=== PATIENT | female | born 1960 | race Caucasian/White ===

== ENCOUNTER → 2017-06-12 | Day surgery (SDC) | payer OTHER ==
[~2017-06-12] VITALS: Ht 160 cm; Wt 46.0 kg
[~2017-06-12] MED LIST: ALBU18HF INH; CYCL5TAB PO; DIAZ5TAB PO; DIL4T PO; DIPH25CA6 PO; Lactated Ringer's 1,000 ML IV ONE; Lactated Ringer's 1,000 ML IV SCH; MetoCLOpramide 5 mg/mL 2 mL Inj IVPUSH PRN; OMEP20CA11 PO; OXYC-474 PO; OXYC30TA77 PO; Ondansetron 2 mg/mL 2 mL Inj IVPUSH PRN; RANI150T11 PO; SUCR1TAB PO; SYMINH INHALATION; ZOF8 PO
[2017-06-12 14:54] VITALS: BP 145/80; PULSE 90; RESP 14; O2SAT 98
[2017-06-12 15:49] VITALS: BP 115/69; PULSE 83; RESP 16; O2SAT 100
[2017-06-12 15:59] VITALS: BP 121/75; PULSE 76; RESP 16; O2SAT 100
[2017-06-12 16:09] VITALS: BP 115/78; PULSE 82; RESP 14; O2SAT 99
[2017-06-12 16:14] VITALS: BP 106/86; PULSE 81; RESP 14; O2SAT 100
--- NOTE | 2017-06-12 16:15 | PCM.HPANE ---
Patient Data Surgeon Admitting Provider: Attending Provider:Antoine Schmitz MD Primary Care Physician:Khai Michelle DO Other Provider:Delma Grant Anesthesia Reason for Visit Chronic Superficial Gastritis Ht/WT & BMI Height (Feet): 5 Height (Inches): 3 Weight (Kilograms): 46 Body Mass Index 17.00 Allergies Coded Allergies: Sulfa (Sulfonamide Antibiotics) (Verified Allergy, Severe, RASH, 06/12/17) FROM UNCODED ALLERGY NSAIDS (Non-Steroidal Anti-Inflamma (Verified Allergy, Intermediate, STOMACH PAIN, 05/11/16) Past Anesthesia History Anesthesia History: Positive for:: Anesthesia Reactions ("REALLY SICK"), Denies:: Abnormal Airway, Difficult Intubation, Fam Anesthesia Reaction, Fam Malignant Hypertherm, Malignant Hyperthermia Diabetes History Hx Diabetes?: No MRSA MRSA: No Medications Reported Medications Sucralfate 1 Gm Tablet1 Gm PO QID 30 Days Ref 0 06/11/17 Oxycodone (Roxicodone)5 Mg Xsxevb46 Mg PO TID PRN For Pain Ref 0 06/11/17 Omeprazole 20 Mg Capsule.dr20 Mg PO BID Ref 0 06/11/17 Cyclobenzaprine 5 Mg Tablet5 Mg PO DAILY PRN Spasm 06/11/17 Albuterol Sulfate (Ventolin HFA Inhaler)200 Puff/18 Gm Inhaler1 Puff INH Q4 PRN For Wheezing #1 INHALER Ref 0 05/10/16 Diazepam (Valium)5 Mg Tablet2 Mg PO BID A 30 Days Ref 0 05/10/16 Budesonide/Formoterol 160-4.5 mcg Inh (Symbicort 160-4.5 mcg Inh)120 Puff Inhaler1 Puff INHALATION BID #1 INHALER Ref 0 05/10/16 Oxycodone ER (Oxycontin)30 Mg Tab.er.12h10 Mg PO DAILY crush q12 hours 05/10/16 Ondansetron (Zofran)8 Mg Tablet4 Mg PO Q4H PRN For Nausea 05/10/16 diphenhydrAMINE HCl (Benadryl)25 Mg Aoeaqer26 Mg PO HS PRN Ref 0 05/10/16 Discontinued Reported Medications Ranitidine (Zantac)150 Mg Iedzrp600 Mg PO DAILY 05/10/16 Hydromorphone (Dilaudid)4 Mg Tablet4 Mg PO Q4H PRN Pain Ref 0 05/10/16 Budesonide/Formoterol 160-4.5 mcg Inh (Symbicort 160-4.5 mcg Inh)120 Puff Inhaler1 Puff INHALATION BID #1 INHALER Ref 0 05/10/16 History History of ENT Problems?: No HEENT History: Positive for:: Dysphagia (UPPER DYSPHAGIA/PAIN) Denies:: Abnormal Airway Difficult Intubation Hearing Problem Denture Type: Full- Upper Full- Lower Teeth Condition: Missing Teeth Hx of Heart Problems?: No Cardiovascular History: Denies:: AICD Abdominal Aortic Aneurism Atrial Fibrillation Cardiac Surgery Chest Pain Congestive Heart Failure Coronary Artery Disease Edema Heart Murmur Hypertension Irregular Heartbeat Pacemaker Peripheral Vascular Rheumatic Fever Thrombophlebitis Valvular Heart Disease Hx of Respiratory Problem?: Yes Respiratory History: Positive for:: Asthma COPD Denies:: Chest Surgery Cough Dyspnea Emphysema Hemoptysis (ONLY WHEN I HAVE BRONCHITIS, JUST GOT OVER IT A COUPLE MONTHS AGO ) Oxygen Administration Pneumonia Pulmonary Embolism Tuberculosis Use of C-PAP Machine Use of Inhalers / NEBS Hx Neurologic Problems?: No Neurological History: Denies:: Alzheimer's Disease CVA Dementia Dizziness Headaches Multiple Sclerosis Parkinson's Disease Peripheral Neuropathy Seizures TIA Hx of GI Problems?: Yes Gastrointestinal History: Positive for:: Gastroesphageal Reflux Denies:: Cirrhosis Diverticulitis Gall Bladder Disease Gastrointestinal Bleeding Heartburn Hepatitis Hiatal Hernia Liver Disease Rectal Bleeding Hx of Problems?: No Genitourinary History: Denies:: HX of Hemodialysis Kidney Stones Urinary Tract Infection HX of Peritoneal Dialysis: No Female Hx: Denies:: Currently Endometriosis Pelvic Inflammatory Problems with Breasts? Skin History: Denies:: History Skin Disorders? Pressure Ulcers Hx Musculoskeletal Problems?: No Musculoskeletal History: Positive for:: Back Injury Denies:: Degenerative Joint Fibromyalgia Joint Replacement Musculoskeletal Trauma Myasthenia Gravis Osteoarthritis Rheumatoid Arthritis Systemic Lupus Hx of Psycho/Social Problems?: Yes Psycho Social History: Positive for:: Anxiety Denies:: Bipolar Disorder Hx Depression Suicide Attempt Hx Surgeries?: Yes (HYST, CHOLY, THORACIC OUTLET, FX L WRIST, CAVERNOUS ANGENOMA, ) Hx Any Other Health Problems?: No Other History: Positive for:: Hospitalization (back problems) Denies:: Cancer Endocrine Disease Thyroid Disease History Blood Transfusions: Positive for:: Accept Blood Products? Denies:: Blood Transfuse Reaction Blood Transfusions Hx Diabetes: No Hx Alcohol Use: NoHx Substance Use: Yes ("smack, LSD", in her younger years) Smoking Status: Current Every Day Smoker Stop/Bang Treated for Sleep Apnea?: No S-Snoring: Do You Snore Loudly: No T-Tired: feel tired, fatigued: Yes O-Obsered: Observed not breath: No P-Blood Pressure: treated: No B- Body Mass Index > 35 kg/m2: No A- Age over 50: Yes N- Neck Large Circumference: No G- Gender Male: No TATYANA Total Score: 2 Risk Assessment Category Category 1A: Patient has history of documented sleep apnea, and HAS NOT received any narcotic, sedative or anesthesia administration during this stay. Category 1B: Patient has history of documented sleep apnea, and HAS received any narcotic , sedative or anesthesia administration during this stay Category 2: Patient has SUSPECTED Obstructive Sleep Apnea, and HAS received any narcotic , sedative or anesthesia administration during this stay. Category 3: Patient has SUSPECTED Obstructive Sleep Apnea and HAS NOT received narcotic, sedative or anesthesia administration during this stay. Category 4: Outpatient in Procedural Areas with known sleep apnea or who screen positive for High Risk via the STOP/BANG questionnaire. Exam Exam Vital Signs Vital Signs Date Time Temp Pulse Resp B/P Pulse Ox O2 Delivery O2 Flow Rate FiO2 06/12/17 14:54 36.8 90 14 145/80 98 Room Air General Appearance: Alert, Oriented X3, Cooperative, No Acute Distress HEENT/AIRWAY: MP 2 Lungs: Clear to Auscultation, Normal Air Movement Heart: Exam Unremarkable, Regular Rate/Rhythm, No Murmurs/Rubs/Gallops Plan Impression Patient chart reviewed, patient interviewed and anesthestic plan with risks, benefits, and alternatives discussed, and informed consent obtained. NPO per Anesth. Guidelines: Yes ASA Physical Status: ASA2 Mod Systemic Disease Anesthetic Plan: MAC Bene/Risks/Altern/Consents: Yes HP Complete Prior to Induction: Yes Jayro Ayers MD Jun 12, 2017 15:15
--- NOTE | 2017-06-12 16:16 | PCM.ANEP1 ---
Post Anesthesia PACU Phase 1 Assessment Vital Signs Vital Signs Date Time Temp Pulse Resp B/P Pulse Ox O2 Delivery O2 Flow Rate FiO2 06/12/17 16:09 82 14 115/78 99 Room Air 06/12/17 15:59 76 16 121/75 100 Room Air 06/12/17 15:49 83 16 115/69 100 Room Air 06/12/17 14:54 36.8 90 14 145/80 98 Room Air Anesthetic Administered: GA Level of Alertness: Awake, talking MCDONOUGH's with Equal Strength: Yes Pain: No Nausea or Vomiting: No CV Function & Hydration Stable: No Airway Device: Lungs: Clear to Auscultation, Normal Air Movement Dermatome Level: Full Sensation PACU Phase 2 Assessment Complications: No Follow up Care: N/A Patient Instructions Provided: N/A Jayro Ayers MD Jun 12, 2017 16:16
--- NOTE | 2017-06-12 16:17 | ENDO ---
[address] [address] ENDOSCOPY PROCEDURE PATIENT: MACIE URIBE : 1960 MR#: [id number] ADMIT: 06/12/2017 JOB ID: [id number] DATE: 06/12/2017 TYPE OF OPERATION: 1. Esophagogastroduodenoscopy with biopsy. 2. Colonoscopy with hot snare polypectomy. PREOPERATIVE DIAGNOSES: 1. Abdominal pain. 2. Rectal bleeding. POSTOPERATIVE DIAGNOSIS(ES): 1. Moderate nonerosive gastritis status post biopsy. 2. Pylorus status post biopsy. 3. A 2 cm sigmoid polyp, removed by hot snare polypectomy and a hemoclip was placed at the post polypectomy site. ANESTHESIA: Monitored anesthesia care. COMPLICATION: None. BLOOD LOSS: Minimal. DESCRIPTION OF PROCEDURE: After risks and benefits were explained to the patient, informed consent was obtained. After anesthesia administered, upper endoscope was then inserted into the mouth intubating to the esophagus, stomach, second portion of duodenum. Mucosa carefully examined. After the procedure was done, the scope withdrawn and procedure terminated. Colonoscope was then inserted from the rectum to the cecum. Mucosa carefully examined. Prep of the patient was excellent. After the procedure was done, the scope withdrawn and procedure terminated. FINDINGS: Upon inspection of the esophagus, esophagus was normal without masses, ulcers or lesions. Z-line located at 40 cm from incisors. Upon entering stomach, there was a moderate amount of nonerosive gastritis that was seen. No masses, ulcers, or lesions were seen. Retroflexion was normal. The pylorus appeared to be pretty tight at that region, but the scope was able to pass through. The duodenal bulb, first and second portion were normal. Biopsies taken at duodenum, pylorus, antrum, body of the stomach. Upon inspection of the anus, no masses, hemorrhoids, ulcers, fissures that were seen. Throughout the entire examination, there was a 2 cm sigmoid polyp, removed by hot snare polypectomy with a hemoclip that was placed at the post polypectomy site prior to the polypectomy. No other masses or lesions were seen. Retroflexion was normal. IMPRESSIONS: 1. A 2 cm sigmoid colon polyp removed by hot snare polypectomy and a hemoclip placed post polypectomy site. 2. Moderate nonerosive gastritis. 3. Tight pylorus. RECOMMENDATION: 1. Await pathology results. 2. Repeat colonoscopy in three years. 3. Followup in GI clinic as needed with the referring provider.
--- NOTE | 2017-06-15 14:31 | PATH ---
SURGICAL PATHOLOGY Attending Physician:Antoine Schmitz MD CASE STATUS: Signed Out PATIENT NAME: MACIE URIBE PID: [id number] : 1960 DATE COLLECTED:06/12/2017 00:00 SPECIMEN: 1: Duodenum, Biopsy 2: Stomach, Antrum, Biopsy 3: Gastric, Biopsy 4: Gastric, Biopsy 5: Colon, Polyp CLINICAL HISTORY: 1). DUODENAL BIOPSY 2). ANTRUM BIOPSY 3). GASTRIC BODY BIOPSY 4). PYLORUS BIOPSY 5). SIGMOID POLYP X1 FINAL DIAGNOSIS: 1. Duodenal Biopsy: Duodenal mucosa with no diagnostic abnormality. Negative for active inflammation, features of sprue, dysplasia or malignancy. 2. Antrum, Biopsy: Gastric antral-type mucosa with no diagnostic abnormality. Negative for Helicobacter pylori microorganisms. Negative for intestinal metaplasia. Negative for dysplasia or malignancy. 3. Gastric Body, Biopsy: Gastric body-type mucosa with no diagnostic abnormality. Negative for Helicobacter pylori microorganisms. Negative for intestinal metaplasia. Negative for dysplasia or malignancy. 4. Pylorus Biopsy: Gastric antral-type mucosa with mild focal chronic gastritis and a single gland with neutrophilic inflammation. Negative for intestinal metaplasia (by Alcian blue stain) Negative for Helicobacter pylori microorganisms by immunohistochemical stain. Negative for dysplasia or malignancy. 5. Sigmoid Polyp x1, Biopsy: Tubulovillous adenoma. Negative for high grade dysplasia and malignancy. ICD10: D12.6 GROSS DESCRIPTION: The specimen is received in five formalin filled containers labeled with the patient's name. 1). No specimen is labeled "duodenal" and consists of 2 portions of tissue which aggregate to 0.2 x 0.2 x 0.1 CM. The specimen is entirely submitted in cassette 1A. 2). The specimen is labeled "antrum" and consists of a 0.5 x 0.2 x 0.2 CM portion of tissue which is entirely submitted in cassette 2A. 3). The specimen is labeled "gastric body" and consists of 2 portions of tissue which aggregate to 0.3 x 0.2 x 0.2 seen. The specimen is entirely submitted in cassette 3A. 4). The specimen is labeled "pylorus" and consists of a 0.3 x 0.2 x 0.2 CM portion of tissue which is entirely submitted in cassette 4A. 5). The specimen is labeled "sigmoid polyp" and consists of a 0.6 x 0.6 x 0.6 CM portion of tissue. The specimen is bisected and totally submitted in cassette 5A. 06/13/2017[place] MICRO DESCRIPTION: 4) An immunohistochemical stain was performed to evaluate for Helicobacter pylori microorganisms. A control stain showed appropriate reactivity. 4) An Alcian blue stain was performed to evaluate for intestinal metaplasia. The control stain shows appropriate reactivity. * This test was developed and its performance characteristics determined by [facility]. It has not been cleared or approved by the U.S. Food and Drug Administration. The FDA has determined that such clearance or approval is not necessary. This test is used for clinical purposes. It should not be regarded as investigational or for research. ICD-9 CODES: CPT CODES: 1: 49586 2: 81114 3: 74362 4: 72825, 55318, 68052 5: 51181 Electronically Signed Out Blanco Leon MD [facility] [address], [place] [address] Technical component performed at [facility], [address], [place], [address]
== END | disposition home or self-care (01) ==
LOC: END 00:30
PROVIDERS: ATTEND Internal Medicine Gastroenterology
DX: K62.5 Hemorrhage of anus and rectum (principal); D12.5 Benign neoplasm of sigmoid colon; K29.50 Unspecified chronic gastritis without bleeding; K76.0 Fatty (change of) liver, not elsewhere classified; F11.29 Opioid dependence with unspecified opioid-induced disorder
CPT/HCPCS: 43239; 45385; 88305; 88313; 88342; J7120

== ENCOUNTER 2017-07-10 13:21 | Emergency (ER) | payer OTHER ==
[~2017-07-10] VITALS: Ht 157.5 cm; Wt 45.5 kg
[~2017-07-10 13:21] MED LIST changes: -DIL4T PO; -Lactated Ringer's 1,000 ML IV ONE; -Lactated Ringer's 1,000 ML IV SCH; -MetoCLOpramide 5 mg/mL 2 mL Inj IVPUSH PRN; -Ondansetron 2 mg/mL 2 mL Inj IVPUSH PRN; -RANI150T11 PO
[2017-07-10 13:23] VITALS: BP 136/88; PULSE 105; RESP 13; O2SAT 98
[2017-07-10] MEDS ORDERED: LidocaineVisc 2%:Antacid 1:1 10 mL Syringe PO ONE (13:35)
--- NOTE | 2017-07-10 13:36 | ED.REPORT ---
HPI-Chest Pain 40 and Over Date of Service Jul 10, 2017 ED Provider: Ja Ha MD The pt is a 56 y/o female w/ a hx of chronic superficial gastritis, anxiety, COPD, asthma, arthritis, a cholecystectomy and obstructive jaundice presenting to the ED complaining of upper abdominal pain. The pain does not feel similar to past episodes of acid reflux, has been intermittent fro the last 3 weeks but constant since last night, sharp, and radiates to her back and chest w/ a burning sensation. Her medications have not helped to decrease her symptoms. Other symptoms include dizziness, nausea, and lungs shuddering when she tries to take a breath. Denies vomiting or blood in stool. Nursing Notes Stated Complaint: SOB Chief Complaint: Abdominal pain Nursing Notes Reviewed: Yes Allergies: Coded Allergies: Sulfa (Sulfonamide Antibiotics) (Verified Allergy, Severe, RASH, 06/12/17) FROM UNCODED ALLERGY NSAIDS (Non-Steroidal Anti-Inflamma (Verified Allergy, Intermediate, STOMACH PAIN, 05/11/16) Scheduled Budesonide/Formoterol 160-4.5 mcg Inh (Symbicort 160-4.5 mcg Inh) 120 Puff Inhaler 1 PUFF INHALATION BID Diazepam (Valium) 5 Mg Tablet 2 MG PO BID Omeprazole (Omeprazole) 20 Mg Capsule.dr 20 MG PO BID Oxycodone ER (Oxycontin) 30 Mg Tab.er.12h 10 MG PO DAILY crush q12 hours Sucralfate (Sucralfate) 1 Gm Tablet 1 GM PO QID Scheduled PRN Albuterol Sulfate (Ventolin HFA Inhaler) 200 Puff/18 Gm Inhaler 1 PUFF INH Q4 PRN PRN For Wheezing Cyclobenzaprine (Cyclobenzaprine) 5 Mg Tablet 5 MG PO DAILY PRN PRN Spasm Ondansetron (Zofran) 8 Mg Tablet 4 MG PO Q4H PRN PRN For Nausea Oxycodone (Roxicodone) 5 Mg Tablet 10 MG PO TID PRN PRN For Pain diphenhydrAMINE HCl (Benadryl) 25 Mg Capsule 25 MG PO HS PRN PRN General Time Seen by MD: 13:36 Chief Complaint Other (Abdominal pain ) Hx Obtained From: Patient Arrived By: Walk-in Sudden in Onset?: Yes Onset Occurred: More than a week ago... (3 weeks) Symptom Duration: Since onset Recent Healthcare: No recent hospitalization, Recent doctor visit Similar Sx Previous: No Past Medical History Past Medical History Chronic superficial gastritis Obstructive jaundice Anxiety COPD Asthma Arthritis Past Surgical History Hysterectomy Cholecystectomy Thoracic outlet L wrist Smoking History Current Every Day Smoker Social History Other Social History: Good social support Ambulatory Status Independent Review of Systems Lung "shuddering"; Cardiovascular: Reports: Chest pain GI: Reports: Abdominal pain (Upper ), Nausea, Denies: Bloody/tarry stool, Hematemesis, Vomiting Neurologic: Reports: Dizziness Complete sys rev & neg: except as marked. Physical Exam Initial Vital Signs Vital Signs (First) Date Time Temp Pulse Resp B/P Pulse Ox O2 Delivery O2 Flow Rate FiO2 07/10/17 13:23 36.4 105 13 136/88 98 Room Air Initial VS: Reviewed Head / Eyes: Atraumatic, Normocephalic, PERRL ENT: Mucous membranes moist, Conjunctiva normal, No scleral icterus Neck: Supple, Non-tender, Full range of motion Extremities: Vascular intact, Neuro intact, No swelling, No tenderness Skin: Warm, Dry, No cyanosis Neurologic: Alert, Oriented, Nonfocal Psychiatric: Mood/affect normal, Behavior normal, Normal thought content General/Constitutional: Awake, Alert Respiratory / Chest: Atraumatic, Breath sounds NL, Breath sounds = bilat Cardiovascular: Heart rate NL, Regular rhythm, Heart sounds NL Abdomen: Soft Tenderness/Guarding/Rebound: Positive: Tender epigastric Interpretation & Diagnostics Lab Results Interpretation Result Diagram: 07/10/17 1340 07/10/17 1340 Test 07/10/17 13:40 White Blood Count 10.0th/mm3 (3.8-10.1) Red Blood Count 5.44mil/mm3 (3.90-5.20) Hemoglobin 15.9g/dL (12.0-15.6) Hematocrit 47.1% (35.0-46.0) Mean Corpuscular Volume 86.6fL (81-100) Mean Corpuscular Hemoglobin 29.2pg (27.0-35.0) Mean Corpuscular Hemoglobin Concent 33.8% (32.0-37.0) Red Cell Distribution Width 13.6% (12.3-15.4) Platelet Count 406bil/L (150-400) Neutrophils (%) (Auto) 70.5% (40-74) Lymphocytes (%) (Auto) 20.8% (14-46) Monocytes (%) (Auto) 7.0% (4-12) Eosinophils (%) (Auto) 0.6% (0-5) Basophils (%) (Auto) 0.9% (0-3) D-Dimer < 0.50mg/L FEU (<0.50) Sodium Level 139mEq/L (134-144) Potassium Level 3.9mEq/L (3.5-5.2) Chloride Level 98mEq/L (97-108) Carbon Dioxide Level 22mmol/L (18-29) Blood Urea Nitrogen 9mg/dL (6-24) Creatinine 0.70mg/dL (0.57-1.00) Estimat Glomerular Filtration Rate 123mL/min (>59) Glucose Level 91mg/dL (60-99) Calcium Level 9.9mg/dL (8.5-10.1) Magnesium Level 2.0mg/dL (1.6-2.6) Total Bilirubin 0.3mg/dL (0.0-1.2) Aspartate Amino Transf (AST/SGOT) 20U/L (0-50) Alanine Aminotransferase (ALT/SGPT) 12U/L (0-32) Alkaline Phosphatase 75U/L (25-150) Troponin T < 0.010ug/L (0.0-0.011) Total Protein 7.4g/dL (6.4-8.4) Albumin 4.5g/dL (3.4-5.0) Lipase 16U/L (13-60) Hold Marshall Top Tube Received (Received) ECG Interpretation ECG Interpretation: NSR Rate 94 T wave flattening in v1-v4 No previous ECG for comparison Time: 13:30 Interpreted by: ED physician X-Ray Chest Interpretation Chest Xray Interpretation: IMPRESSION: Source of chest pain is not seen. Old left lateral rib fractures. Dictated by: Ras Dooley M.D. on 07/10/2017 at 13:58 Approved by: Ras Dooley M.D. on 07/10/2017 at 13:59 View: Portable, 1 view Interpretation / Wet Read by: Interpret - Radiologist Re-Eval/Medical Decision Med Decision/Clinical Course 56-year-old female with chronic gastritis presenting with epigastric pain intermittent 3 weeks. She did have an EGD with biopsy 3 weeks ago. She reports this feels similar to her chronic gastritis. Pain improved with GI cocktail. Her abdomen is soft with minimal epigastric tenderness. Given the chronicity, no peritoneal signs, chest x-ray is clear with no pneumoperitoneum do not suspect perforated viscus from the EGD though patient declined CT scan. Her labs are unremarkable. Patient did have mild tenderness at time of discharge though she requested to go home without any further testing or medications or interventions. She will return immediately if she has any worsening pain. Source of Hx: Old records Time of Eval: 14:31 Re-Evaluation/Progress Note: Pt rechecked. Informed pt of plan for treatment. Pt understands and agrees with plan for treatment. F/U instructions and RTER warnings given. All questions addressed. Counseled Regarding: Diagnosis, Lab results, Need for follow-up, When/why to return to ED Discharge & Departure Primary Impression: Abdominal pain Abdominal location: epigastric Qualified Code: R10.13 - Epigastric pain Disposition: Home Discharge Condition All VS Reviewed: Yes Condition: Stable Additional Instructions: Thank for you entrusting us with your care today. Your labs were reassuring. You have declined any further pain medications and requested to go home and it is still unclear what is causing your symptoms. Follow up with your primary care provider tomorrow and please return to the emergency department if you experience any increasing abdominal pain, nausea, vomiting, blood in your stool, fevers, chest pain, shortness of breath, or any new or worsening symptoms. I hope you feel better soon. Referrals: Khai Michelle DO (PCP) Scribe Attestation Portions of this note were transcribed by Fam Swan. I, Dr. Peres personally performed the history, physical exam and medical decision-making; I reviewed and confirmed the accuracy of the information in the transcribed note. copies to: Khai Michelle Ben M MD Jul 10, 2017 13:36 Fam Swan Jul 10, 2017 13:56
[2017-07-10 13:50] LABS: BASOPHILS % (AUTO) 0.9 % (0-3); EOSINOPHILS % (AUTO) 0.6 % (0-5); Mean Corpuscular Hemoglobin 29.2 pg (27.0-35.0); Mean Corpuscular Volume 86.6 fL (81-100); NEUTROPHILS % (AUTO) 70.5 % (40-74); Platelet Count 406 bil/L (150-400)
[2017-07-10] MEDS ORDERED: Ondansetron 2 mg/mL 2 mL Inj IVPUSH PRN (13:50)
--- NOTE | 2017-07-10 14:00 | DRSVH ---
PROCEDURE: X-RAY CHEST ONE VIEW, PORTABLE ([id number]) INDICATIONS: CHEST PAIN TECHNIQUE: One view of the chest was acquired. COMPARISON: None. FINDINGS: Surgical changes and devices: None. Lungs and pleura: No pleural effusions or pneumothorax. Lungs are clear. Mediastinum: Mediastinal contours appear normal. Heart size is normal. Bones and chest wall: No suspicious bony lesions. Overlying soft tissues appear unremarkable. IMPRESSION: Source of chest pain is not seen. Old left lateral rib fractures. Dictated by: Ras Dooley M.D. on 07/10/2017 at 13:58 Approved by: Ras Dooley M.D. on 07/10/2017 at 13:59
[2017-07-10] MEDS ORDERED: Iohexol 300 mg/mL 30 mL Inj PO ONE (14:05)
[2017-07-10 14:17] LABS: TROPONIN T < 0.010 ug/L (0.0-0.011)
[2017-07-10 15:14] VITALS: BP 125/64; PULSE 89; RESP 17; O2SAT 98
== END 2017-07-10 15:23 | disposition home or self-care (01) ==
LOC: SED 13:21
DX: R10.13 Epigastric pain (principal); J44.9 Chronic obstructive pulmonary disease, unspecified; F41.9 Anxiety disorder, unspecified; F17.200 Nicotine dependence, unspecified, uncomplicated; Z88.2 Allergy status to sulfonamides; Z91.048 Other nonmedicinal substance allergy status
CPT/HCPCS: 36415; 71010; 80053; 83690; 83735; 84484; 85025; 85378; 93005; 96374; 96375; 99285; J2270; J2405

== ENCOUNTER → 2017-07-19 | Day surgery (SDC) | payer OTHER ==
[~2017-07-19] VITALS: Ht 157.5 cm; Wt 45.4 kg
[~2017-07-19] MED LIST changes: +Lactated Ringer's 1,000 ML IV ONE; +Propofol 10 mg/mL 20 mL Inj ONE
[2017-07-19 10:28] VITALS: BP 124/93; PULSE 101; O2SAT 99
--- NOTE | 2017-07-19 11:48 | PCM.HPANE ---
Patient Data Surgeon Admitting Provider: Attending Provider:Eleni Woodward MD Primary Care Physician:Khai Michelle DO Other Provider:Delma Grant Anesthesia Reason for Visit Abnormal Abdominal Ct Scan Ht/WT & BMI Height (Feet): 5 Height (Inches): 2 Weight (Kilograms): 45.36 Body Mass Index 18.00 Allergies Coded Allergies: Sulfa (Sulfonamide Antibiotics) (Verified Allergy, Severe, RASH, 06/12/17) FROM UNCODED ALLERGY NSAIDS (Non-Steroidal Anti-Inflamma (Verified Allergy, Intermediate, STOMACH PAIN, 05/11/16) acetaminophen (Verified Allergy, Unknown, 07/17/17) aspirin (Verified Allergy, Unknown, 07/17/17) naproxen (Verified Allergy, Unknown, 07/17/17) Past Anesthesia History Anesthesia History: Positive for:: Anesthesia Reactions ("REALLY SICK"), Denies:: Abnormal Airway, Difficult Intubation, Fam Anesthesia Reaction, Fam Malignant Hypertherm, Malignant Hyperthermia Diabetes History Hx Diabetes?: No MRSA MRSA: No Medications Home Meds Incl Beta Juan: No Reported Medications Sucralfate 1 Gm Tablet1 Gm PO QID 30 Days Ref 0 06/11/17 Oxycodone (Roxicodone)5 Mg [id number] Mg PO QID PRN For Pain Ref 0 06/11/17 Omeprazole 20 Mg Capsule.dr20 Mg PO BID Ref 0 06/11/17 Cyclobenzaprine 5 Mg Tablet5 Mg PO DAILY PRN Spasm 06/11/17 Albuterol Sulfate (Ventolin HFA Inhaler)200 Puff/18 Gm Inhaler1 Puff INH Q4 PRN For Wheezing #1 INHALER Ref 0 05/10/16 Budesonide/Formoterol 160-4.5 mcg Inh (Symbicort 160-4.5 mcg Inh)120 Puff Inhaler1 Puff INHALATION BID #1 INHALER Ref 0 05/10/16 Oxycodone ER (Oxycontin)30 Mg Tab.er.12h10 Mg PO BID crush q12 hours 05/10/16 Ondansetron (Zofran)8 Mg Tablet4 Mg PO Q4H PRN For Nausea 05/10/16 diphenhydrAMINE HCl (Benadryl)25 Mg Huyjtrg88-01 Mg PO HS PRN Ref 0 05/10/16 Discontinued Reported Medications Diazepam (Valium)5 Mg Tablet2 Mg PO BID A 30 Days Ref 0 05/10/16 History History of ENT Problems?: No HEENT History: Positive for:: Dysphagia (UPPER DYSPHAGIA/PAIN) Denies:: Abnormal Airway Difficult Intubation Hearing Problem Denture Type: Full- Upper Full- Lower Teeth Condition: Within Normal Limits Hx of Heart Problems?: No Cardiovascular History: Denies:: AICD Abdominal Aortic Aneurism Atrial Fibrillation Cardiac Surgery Chest Pain Congestive Heart Failure Edema Heart Murmur Hypertension Irregular Heartbeat Pacemaker Rheumatic Fever Thrombophlebitis Valvular Heart Disease Hx of Respiratory Problem?: Yes Respiratory History: Positive for:: Asthma 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) Denies:: Chest Surgery Cough Dyspnea Emphysema Hemoptysis (ONLY WHEN I HAVE BRONCHITIS, JUST GOT OVER IT A COUPLE MONTHS AGO ) Oxygen Administration Pneumonia Pulmonary Embolism Tuberculosis Use of C-PAP Machine Hx Neurologic Problems?: No Neurological History: Denies:: Alzheimer's Disease CVA Dementia Dizziness Headaches Multiple Sclerosis Parkinson's Disease Seizures Hx of GI Problems?: Yes Hx of Problems?: No Genitourinary History: Denies:: HX of Hemodialysis Kidney Stones Urinary Tract Infection HX of Peritoneal Dialysis: No Female Hx: Denies:: Currently Endometriosis Pelvic Inflammatory Problems with Breasts? Skin History: Denies:: History Skin Disorders? Pressure Ulcers Hx Musculoskeletal Problems?: No Musculoskeletal History: Positive for:: Back Injury Denies:: Degenerative Joint Fibromyalgia Joint Replacement Musculoskeletal Trauma Systemic Lupus Hx of Psycho/Social Problems?: Yes Psycho Social History: Positive for:: Anxiety Denies:: Bipolar Disorder Hx Depression Suicide Attempt Hx Surgeries?: Yes (HYST, CHOLY, THORACIC OUTLET, FX L WRIST, CAVERNOUS ANGENOMA, ) Hx Any Other Health Problems?: No Other History: Positive for:: Hospitalization (back problems) Denies:: Cancer Endocrine Disease Thyroid Disease History Blood Transfusions: Denies:: Blood Transfuse Reaction Blood Transfusions Hx Diabetes: No Hx Alcohol Use: NoHx Substance Use: Yes ("smack, LSD", in her younger years) Smoking Status: Current Every Day Smoker Have You Smoked inLast 12 mo: Yes Stop/Bang Treated for Sleep Apnea?: No Do You Have a CPAP Machine?: No S-Snoring: Do You Snore Loudly: No T-Tired: feel tired, fatigued: No O-Obsered: Observed not breath: No P-Blood Pressure: treated: No B- Body Mass Index > 35 kg/m2: No A- Age over 50: Yes N- Neck Large Circumference: No G- Gender Male: No TATYANA Total Score: 1 Risk Assessment Category Category 1A: Patient has history of documented sleep apnea, and HAS NOT received any narcotic, sedative or anesthesia administration during this stay. Category 1B: Patient has history of documented sleep apnea, and HAS received any narcotic , sedative or anesthesia administration during this stay Category 2: Patient has SUSPECTED Obstructive Sleep Apnea, and HAS received any narcotic , sedative or anesthesia administration during this stay. Category 3: Patient has SUSPECTED Obstructive Sleep Apnea and HAS NOT received narcotic, sedative or anesthesia administration during this stay. Category 4: Outpatient in Procedural Areas with known sleep apnea or who screen positive for High Risk via the STOP/BANG questionnaire. Exam Exam Vital Signs Vital Signs Date Time Temp Pulse Resp B/P Pulse Ox O2 Delivery O2 Flow Rate FiO2 07/19/17 10:28 101 124/93 99 Room Air General Appearance: Alert, Oriented X3, Cooperative, No Acute Distress HEENT/AIRWAY: MP 2 Lungs: Normal Air Movement Heart: Regular Rate/Rhythm Plan Impression Patient chart reviewed, patient interviewed and anesthestic plan with risks, benefits, and alternatives discussed, and informed consent obtained. NPO per Anesth. Guidelines: Yes ASA Physical Status: ASA2 Mod Systemic Disease Anesthetic Plan: MAC Bene/Risks/Altern/Consents: Yes HP Complete Prior to Induction: Yes Brian Christine MD Jul 19, 2017 11:48
[2017-07-19 12:11] VITALS: BP 137/71; PULSE 79; RESP 10; O2SAT 100
[2017-07-19 12:20] VITALS: BP 134/76; PULSE 75; RESP 12; O2SAT 100
[2017-07-19 12:28] VITALS: BP 134/76; PULSE 83; RESP 16; O2SAT 99
[2017-07-19 12:30] VITALS: BP 127/67; PULSE 77; RESP 14; O2SAT 100
--- NOTE | 2017-07-19 18:16 | PCM.ANEP1 ---
Post Anesthesia PACU Phase 1 Assessment Vital Signs Vital Signs Date Time Temp Pulse Resp B/P Pulse Ox O2 Delivery O2 Flow Rate FiO2 07/19/17 12:30 77 14 127/67 100 Room Air 07/19/17 12:28 83 16 134/76 99 Room Air 07/19/17 12:20 75 12 134/76 100 Room Air 07/19/17 12:11 35.9 79 10 137/71 100 Room Air 07/19/17 10:28 101 124/93 99 Room Air Anesthetic Administered: MAC Level of Alertness: Awake, talking Pain: No Nausea or Vomiting: No CV Function & Hydration Stable: Yes Airway Device: None Lungs: Normal Air Movement PACU Phase 2 Assessment Complications: No Follow up Care: N/A Patient Instructions Provided: N/A Brian Christine MD Jul 19, 2017 18:16
--- NOTE | 2017-07-26 00:38 | ENDO ---
[address] [address] ENDOSCOPY PROCEDURE PATIENT: MACIE URIBE : 1960 MR#: [id number] ADMIT: 07/19/2017 JOB ID: [id number] DATE OF PROCEDURE: 07/19/2017 PROCEDURE: Endoscopic ultrasound, esophagogastroduodenoscopy. INDICATION: Epigastric pain with cross-sectional imaging demonstrating a dilated pancreatic duct and bile duct. ANESTHESIA: Please see anesthesia report for details regarding ASA classification, Mallampati score, and medications. INSTRUMENTS USED: [id number] standard EGD scope, as well as a [id number] radial echoendoscope, and a [id number] linear echoendoscope. PROCEDURE DETAILS: After informed consent was obtained, the patient was brought into the GI suite, where she was placed on oxygen via nasal cannula and monitored with continuous pulse oximeter, telemetry, and blood pressure monitoring. A time-out was performed. Then, she was placed in the left lateral decubitus position and bite block was placed. The radial echoendoscope was then introduced through the bite block and advanced without difficulty to the pylorus. At the pylorus, we did encounter some mild resistance as we attempted to pass the radial echoendoscope. At this point, the radial echoendoscope was then withdrawn and a standard EGD scope was inserted through the bite block and advanced without difficulty to the second portion of the duodenum. We did not encounter any resistance at the pylorus. The radial echoendoscope was then introduced through the bite block and advanced into the second portion of duodenum with mild gentle pressure. Radial echoendoscopic imaging demonstrated: 1. A dilated common bile duct measuring approximately 10 mm without any obvious filling defects. 2. The pancreatic duct was also appreciated and appeared to be dilated in the head and extending into the uncinate process, and appeared to be approximately 5 mm. This gradually tapered down to approximately 2 mm in the tail of the pancreas. 3. No obvious mass lesions were seen in the ampulla. 4. The examined portions of the pancreas parenchyma appeared unremarkable. There was some hyperechoic stranding. 5. The visualized portions of the left lobe of liver were unremarkable. Next, the radial echoendoscope was then withdrawn and then the linear echoendoscope was then introduced through the bite block and advanced without difficulty to the second portion of the duodenum. Linear echoendoscopic imaging demonstrated: 1. Again, a dilated common bile duct measuring approximately 10 mm without any obvious filling defects. 2. The pancreatic duct also appeared to be dilated in the head of the pancreas measuring approximately 5 mm, and this gradually tapered to approximately appeared to be normal in caliber in the tail of the pancreas. No mass lesions were seen at the ampulla. 3. The pancreatic parenchyma appeared to have slightly hyperechoic fat stranding. 4. The superior mesenteric artery and celiac axis were identified and had normal flow. 5. The portal vein was identified and had normal flow. 6. The splenic artery and vein appeared normal with flow. 7. The left adrenal gland was identified and appeared unremarkable. 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 COMPLICATIONS: None. ESTIMATED BLOOD LOSS: Zero.
== END | disposition home or self-care (01) ==
LOC: END 08:20
PROVIDERS: ATTEND Internal Medicine Gastroenterology
DX: K86.89 Other specified diseases of pancreas (principal); K83.8 Other specified diseases of biliary tract; G43.909 Migraine, unspecified, not intractable, without status migrainosus; J44.9 Chronic obstructive pulmonary disease, unspecified; K21.9 Gastro-esophageal reflux disease without esophagitis; F41.9 Anxiety disorder, unspecified; Z87.820 Personal history of traumatic brain injury; Z79.51 Long term (current) use of inhaled steroids; Z79.82 Long term (current) use of aspirin
CPT/HCPCS: 43237; J2704; J7120